=== PATIENT | female | born 1945 | race Caucasian/White ===

== ENCOUNTER → 2017-05-30 | Outpatient (CLI) | payer OTHER, SELFPAY ==
[~2017-05-30] MED LIST: AMOXICILLIN500 M1 PO; AMPICILLIN TRI250 MG PO; ATIVAN1 MG PO; AVAPRO300 MG PO; CALCIUM 600 +1 EAC1 PO; CALTRATE 600 +1 EAC1 PO; CEFUROXIME250 MG PO; CIPRO500 MG PO; CLONIDINE HCL0.3 M3 PO; COREG25 MG PO; COUMADIN 5 MG TA5 M1 PO; COUMADIN7.5 MG PO; DUONEB 2.5-0.5 M3 ML INH; ENOXAPARIN120 MG/0.1 SUBQ; FEMARA2.5 MG PO; FOLIC ACID 40400 MC1 PO; FOLIC ACID1 MG PO; HUMALOG100 UNIT/1 SUBQ; HYDRALAZINE 2525 MG PO; HYDROCODONE-AP1 EAC6 PO; IRON325 PO; KLOR-CON 1010 MEQ PO; LANTUS100 UNIT/M SUBQ; LASIX 20 MG TAB20 MG PO; LEVAQUIN 500 M500 M2 PO; LEVAQUIN 500 M500 MG PO; LEVAQUIN 7750 MG/152 IV; LEVSIN0.125 MG SUBLING; LIPITOR 20 MG T20 M1 PO; MINOCIN100 MG PO; MINOCYCLINE HC100 M2 PO; MIRALAX17 GM PO; NEBULIZER INH; NEBULIZER MISCELL; NORCO 5-325 TA1 EAC1 PO; NORVASC5 MG PO; OMEPRAZOLE20 M2 PO; PERCOCET PO; SENNA S TABLET1 EACH PO; SENOKOT-S1 TA1 PO; TRAMADOL 50 MG50 MG PO; VITAMIN B-12500 MCG PO; VITAMIN D1000 UNI1 PO; VITAMIN D50000 UNIT PO
== END ==
LOC: M.WC 00:07
DX: E11.622 Type 2 diabetes mellitus with other skin ulcer (principal); L97.221 Non-pressure chronic ulcer of left calf limited to breakdown of skin; L97.211 Non-pressure chronic ulcer of right calf limited to breakdown of skin; I87.2 Venous insufficiency (chronic) (peripheral); I89.0 Lymphedema, not elsewhere classified; I10 Essential (primary) hypertension; Z85.3 Personal history of malignant neoplasm of breast

== ENCOUNTER 2017-06-06 23:22 | Inpatient (IN) | payer OTHER, SELFPAY ==
[~2017-06-06] VITALS: Ht 152.4 cm; Wt 159.7 kg
[~2017-06-06 23:22] MED LIST changes: -FOLIC ACID1 MG PO; -MINOCIN100 MG PO; -MINOCYCLINE HC100 M2 PO; -NEBULIZER INH; -NORCO 5-325 TA1 EAC1 PO; -SENNA S TABLET1 EACH PO; -VITAMIN D1000 UNI1 PO
[2017-06-06 23:31] VITALS: BP 204/78
[2017-06-06 23:58] LABS: INFLUENZA A ANTIGEN None Detected (None Detect); INFLUENZA B ANTIGEN None Detected (None Detect)
[2017-06-07 00:35] LABS: ABSOLUTE BASOPHILS 0.1 thou/uL (0.0-0.2); ABSOLUTE EOSINOPHILS 0.1 thou/uL (0.0-0.7); ABSOLUTE LYMPHOCYTES 1.3 thou/uL (0.8-5.3); ABSOLUTE MONOCYTES 0.5 thou/uL (0.0-1.2); ABSOLUTE NEUTROPHILS 7.6 thou/uL (1.6-8.1); BASOPHILS 0.6 %; EOSINOPHILS 1.4 %; HEMATOCRIT 35.3 % (37.0-47.0); HEMOGLOBIN 11.7 gm/dL (12.0-15.0); LYMPHOCYTES 13.2 %; MCH 28.3 pg (26.0-34.0); MCHC 33.1 g/dL (28.0-37.0); MCV 85.5 fL (80.0-100.0); MONOCYTES 5.2 %; NUCLEATED RBCS 0 /100WBC; PLATELET COUNT* 128 thou/uL (150-400); POLYS 79.6 %; RBC 4.13 mil/uL (4.20-5.00); WBC 9.6 thou/uL (4.0-11.0)
[2017-06-07 00:40] LABS: URINE BILIRUBIN NEGATIVE (Negative); URINE BLOOD NEGATIVE (Negative); URINE CLARITY CLEAR; URINE COLOR YELLOW; URINE GLUCOSE-RANDOM NEGATIVE (Negative); URINE KETONES NEGATIVE (Negative); URINE LEUKOCYTES-REFLEX NEGATIVE (Negative); URINE NITRITE-REFLEX NEGATIVE (Negative); URINE PROTEIN NEGATIVE (Negative); URINE SPECIFIC GRAVITY 1.015 (1.005-1.030); URINE UROBILINOGEN 0.2 E.U./dl (0.2-1.0)
[2017-06-07 00:45] LABS: CREATININE 1.2 mg/dL (0.6-1.3); POTASSIUM 4.2 mmol/L (3.5-5.1)
[2017-06-07 00:50] LABS: APTT 39.7 Seconds (25.0-31.3); INR 2.6; PROTIME 24.8 Seconds (9.20-11.50)
[2017-06-07 00:52] LABS: ALBUMIN 2.8 g/dL (3.4-5.0); TOTAL BILIRUBIN 0.7 mg/dL (<0.1-1.0); TOTAL PROTEIN 6.7 g/dL (6.4-8.2)
--- NOTE | 2017-06-07 01:58 | NUR ---
PATIENT HAS BEEN UP TO BATHROOM MULTIPLE TIMES AND STATES SHE HAS BEEN VOIDING EACH TIME.
[2017-06-07 02:10] VITALS: BP 180/80
[2017-06-07 03:00] VITALS: BP 148/66
[2017-06-07] MEDS ORDERED: NEBULIZER INH (03:33)
[2017-06-07] MEDS ORDERED: NEBULIZER MISCELL (03:35)
--- NOTE | 2017-06-07 08:03 | NUR ---
PATIENT ARRIVED TO UNIT AT APPROXIMATELY 0225 AND WAS ACCOMPANIED BY HER SISTER, A FAMILY FRIEND, AND AN ED STAFF MEMBER. PATIENT WAS ACCLIMATED TO THE FLOOR, HER ROOM, AND THE CALL LIGHT SYSTEM. PATIENT A/O X 4 AND VSS. PATIENT IS ABLE TO WALK TO THE COMMODE WITH A MOSTLY STEADY GAIT. SHE NEEDS STANDBY ASSISTANCE FOR SAFETY. PATIENT LEFT ARM APPEARS APPROPRIATE FOR HER RACE AND IS WITHOUT REDNESS. PATIENT HAS BEEN UP TO THE RESTROOM MULTIPLE TIMES WITHOUT INCIDENT. URINE IS YELLOW, CLEAR AND WITHOUT ANY SEDIMENT. DURING REMOVAL OF A BANDAID, PATIENT WAS LEFT WITH A SKIN TEAR ON HER RIGHT FOREARM. WOUND NURSE CONSULTED AND PICTURES TAKEN OF WOUND AREA. D/T HX OF MRSA X 2 YEARS AGO, PATIENT IS IN CONTACT PRECAUTIONS AND A MRSA SWAB HAS BEEN SUBMITTED TO LAB FOR TESTING. PATIENT DENIED PAIN OVERNIGHT AND NO ORDERED PRN MEDICATIONS WERE ADMINISTERED. NURSING TO FOLLOW-UP NECESSARY. ALL FALL PRECAUTIONS IN PLACE, INCLUDING CALL LIGHT WITHIN REACH. WILL CONTINUE TO MONITOR CLOSELY.
[2017-06-07 09:30] VITALS: BP 152/67
[2017-06-07 16:26] VITALS: BP 145/79
--- NOTE | 2017-06-07 17:30 | NUR ---
PATIENT IS ALERT AND ORIENTED. ANGRY ABOUT BEING IN THE HOSPITAL AND FOR BEING ADMITTED, HAS THREATENED TO LEAVE AMA SEVERAL TIMES BUT HAS NO RIDE. IV WAS DISCONTINUED TODAY BY PATIENT. NO COMPLAINTS OF PAIN OR SHORTNESS OF AIR TODAY. VITAL SIGNS STABLE ON RROM AIR. CALL LIGHT IN REACH, WILL CONTINUE TO MONITOR.
[2017-06-07 20:00] VITALS: BP 158/74
[2017-06-08 03:39] VITALS: BP 133/53
[2017-06-08 03:41] LABS: ABSOLUTE EOSINOPHILS 0.2 thou/uL (0.0-0.7); ABSOLUTE LYMPHOCYTES 0.9 thou/uL (0.8-5.3); ABSOLUTE MONOCYTES 0.5 thou/uL (0.0-1.2); ABSOLUTE NEUTROPHILS 2.7 thou/uL (1.6-8.1); BASOPHILS 1.2 %; EOSINOPHILS 3.9 %; HEMATOCRIT 33.1 % (37.0-47.0); LYMPHOCYTES 21.1 %; MCH 28.5 pg (26.0-34.0); MCHC 33.3 g/dL (28.0-37.0); MCV 85.6 fL (80.0-100.0); MONOCYTES 11.8 %; MPV 9.8 fl. (7.2-11.1); NUCLEATED RBCS 0 /100WBC; PLATELET COUNT* 105 thou/uL (150-400); RBC 3.86 mil/uL (4.20-5.00); RDW-CV 16.1 % (10.5-14.5); WBC 4.3 thou/uL (4.0-11.0)
[2017-06-08 03:50] LABS: INR 1.5; PROTIME 14.2 Seconds (9.20-11.50)
[2017-06-08 03:52] LABS: CALCIUM 8.6 mg/dL (8.5-10.1); CREATININE 1.2 mg/dL (0.6-1.3); POTASSIUM 3.6 mmol/L (3.5-5.1)
--- NOTE | 2017-06-08 05:19 | NUR ---
ASSUMED CARE OF PATIENT AT APPROXIMATELY 1999. UPON FIRST ASSESSMENT, PATIENT WAS FRUSTRATED AND SLIGHTLY IRRITABLE D/T HER DESIRE WANT TO LEAVE. PATIENT A/O X 4 AND VSS. PATIENT REMOVED IV EARLIER YESTERDAY (06/07/17) AND NEW SITE IN LEFT HAND WAS APPARENTLY EXTREMELY PAINFUL FOR PATIENT DURING INSERTION. PATIENT HAS VERBALIZED THAT SHE WILL NOT BE "POKED" AGAIN AND WILL "JUST TAKE PILLS" IF SHE NEEDS ANOTHER IV, ETC. PATIENT HAS BEEN EXPRESSING HER DESIRE TO GO HOME SINCE ADMISSION. PATIENT HAD BM'S X 4 YESTERDAY (06/07/17). PATIENT'S UPPER EXTREMETIES (L ARM) CONTINUES TO DISPLAY CELLULITIS. PATIENT HAS REQUESTED NO PAIN MEDICATIONS PRN AND HAS DENIED PAIN OVERNIGHT. PATIENT EDUCATION HAS BEEN PERFORMED REGARDING LEAVING AMA AND THE BENEFIT OF IV MEDICATIONS. NURSING TO FOLLOW-UP NECESSARY. ALL FALL PRECAUTIONS IN PLACE, INCLUDING CALL LIGHT WITHIN REACH. WILL CONTINUE TO MONITOR CLOSELY.
[2017-06-08 07:45] VITALS: BP 140/52
--- NOTE | 2017-06-08 07:46 | CON ---
[address] [address] CONSULTATION Name: EUGENIOJOANIE DWAYNE Room: [address] IN M.R.#: [id number] Admission: 06/07/17 Attend Phys: Jas Acosta MD Discharge: Date of : 43 Report #: [id number] THIS REPORT FOR: //name// CC: Jas Bernal HISTORY OF PRESENT ILLNESS: Chart reviewed, patient examined. This 71-year-old with longstanding diabetes mellitus type 2, insulin requiring, previous history of left-sided lumpectomy this has been complicated by some lymphedema in the left upper extremity developed an inflammatory eruption in the left upper extremity. She has had a cough. She lives by herself and her sister decided that she was not doing well. She was transitioned to the Emergency Department and was found to have low-grade temperature elevations, felt to have upper extremity skin and soft tissue infection, dosed with vancomycin. She initially complains of left-sided mandibular pain. She had a fractured tooth. Denies any chills. She states her pulmonary status is stable. She denies any gastrointestinal related complaints. ALLERGIES: LISTED TO LATEX AND CODEINE. CURRENT MEDICATIONS: Include ____, losartan, vancomycin, warfarin, amlodipine, clonidine, carvedilol, atorvastatin, p.r.n. analgesics. PAST MEDICAL HISTORY: Diabetes mellitus, hypertension, history of DVTs, lower extremity venous stasis and lymphedema. SOCIAL HISTORY: Nonsmoker and no ethanol. FAMILY HISTORY: Noncontributory. REVIEW OF SYSTEMS: As above. PHYSICAL EXAMINATION: VITAL SIGNS: Temperature max 100.7 more recently 98.4, pulse 78, respirations 18 and blood pressure 150/67. SKIN: Warm, dry and no rashes. HEENT: Unremarkable. NECK: Supple. LUNGS: Diminished with clear breath sounds. HEART: Regular. ABDOMEN: Soft. EXTREMITIES: Left upper extremity has moderate inflammatory eruption. Minimizes degree of pain. There is no fluctuance, no bullous lesions or appreciate any subcutaneous inflammatory masses. GENITOURINARY: Deferred. RECTAL: [place] [address] CONSULTATION Name: EUGENIOJOANIE RAE Room: [address] IN [facility]#: [id number] Admission: 06/07/17 Attend Phys: Jas Acosta MD Discharge: Date of : 43 Report #: [id number] LABORATORY DATA: Influenza A and B antigen were not detected. CBC: White count of 9.6, H and H 11.7 and 35.3 and platelets of 128. Urinalysis is unremarkable. PT 24.8 and INR of 2.6. Electrolytes: Sodium 136, potassium 4.2, chloride 100, bicarbonate is 28, anion gap of 8, BUN and creatinine 27 and 1.2. LFTs are unremarkable. Albumin of 2.8, total protein 6.7. Estimated GFR 44. Lactic acid 1.3. NT-proBNP of 664. CT abdomen and pelvis, no acute process, fatty infiltration of the liver and bilateral bladder tumors. ASSESSMENT: Left upper extremity skin and soft tissue infection with cellulitis. Continue vancomycin for the moment. PLAN: We are going to get mandibular film of the left side to exclude possibility. We will transition to oral antibiotics for the next 1-2 days. Continue elevation. May try to add some compression as well. <ELECTRONICALLY SIGNED> By: Saleem Wyatt MD 06/08/17 0746 [id number] Wyatt MD /nt
--- NOTE | 2017-06-08 12:35 | NUR ---
WOUND CARE NOTE: CONSULT RECEIVED FOR WOUND ON R. FOREARM NOT PRESENT AT ADMIT. PATIENT SUSTAINED A SKIN TEAR AFTER A BANDAID WAS REMOVED, NURSES TO CARE FOR. PATIENT IS BEING SEEN IN THE WOUND CARE CENTER FOR VENOUS ULCERATIONS TO BILATERAL LEGS. LEGS ARE CURRENTLY WRAPPED WITH MULTI-LAYERED COMPRESSION. THESE WERE PLACED 06/06/17 AT THE WOUND CENTER. CURRENTLY THE WRAPS ARE INTACT AND PATIENT REFUSES TO LET THEM BE REMOVED. SHE STATES THEY ARE ONLY TO BE CHANGED WEEKLY. IF PATIENT HERE MONDAY, WILL ASSESS THEN. RECOMMEND FOLLOW UP IN WOUND CENTER UPON DISCHARGE. APPEARS TO HAVE AN APPOINTMENT 06/13/17
[2017-06-08 16:53] VITALS: BP 147/59
--- NOTE | 2017-06-08 17:09 | NUR ---
ALERT AND ORIENTED X4. UP AD ARDEN IN ROOM. IV IS PATENT AND INFUSING. DENIES PAIN AND NAUSEA. TOLERATING DIET. CONTACT PRECAUTIONS MAINTAINED. VSS ON ROOM AIR. HOURLY ROUNDS HAVE BEEN MAINTAINED THROUGHOUT SHIFT. CALL LIGHT IS WITHIN REACH. NURSING WILL CONTINUE TO MONITOR.
--- NOTE | 2017-06-08 17:10 | NUR ---
CM ASSESSMENT: Pt is A&O. Resides at [facility] alone. Supportive sister that assists with meals, Pt states that she is unable to stand long enough to cook. Pt has a cleaning lady that comes in every 2 weeks. Independent with other ADLs. Pt has a walker for mobility. Hx of HH with [facility] and [facility]. Hx of SNF at [facility]. Goal is to dc home tomorrow, open to HH if ordered. Following.
[2017-06-08 20:10] VITALS: BP 153/66
[2017-06-09 00:03] VITALS: BP 140/58
--- NOTE | 2017-06-09 04:28 | NUR ---
PATIENT HAS REMAINED ALERT AND ORIENTED X 4 THROUGHOUT THE SHIFT AND RESTING QUIETLY IN THE RECLINER AT BEDSIDE OVERNIGHT. IV RIGHT HAND INFILTRATED AT MIDNIGHT. PATIENT REFUSING TO HAVE A NEW IV STARTED. DR. DOUGLASS MADE AWARE OF THIS. NO NEW ORDERS AT THAT TIME. WRAPS REMAIN INTACT TO BLE. UP INDEPENDENT IN THE ROOM/BSC. VITAL SIGNS STABLE. CONTINUE TO MONITOR.
[2017-06-09 07:30] VITALS: BP 161/60
[2017-06-09 08:00] VITALS: BP 161/60
[2017-06-09] MEDS ORDERED: SENNA S TABLET1 EACH PO (09:48)
[2017-06-09 09:53] VITALS: BP 161/60
[2017-06-09] MEDS ORDERED: MINOCIN100 MG PO (10:19)
[2017-06-09 11:14] VITALS: BP 161/60
--- NOTE | 2017-06-09 12:09 | NUR ---
PATIENT LEFT UNIT AT 1208. ALERT AND ORIENTED X4. UP AD ARDEN IN ROOM. DENIES PAIN AND NAUSEA. NO IV TO DC. ALL PERSONAL ITEMS LEFT WITH PATIENT. DISCHARGE INSTRUCTIONS, PRESCRIPTIONS, AND NEW MEDICATION INFORMATION SENT WITH PATIENT. VSS ON ROOM AIR. HOURLY ROUNDS HAVE BEEN MAINTAINED THROUGHOUT SHIFT. LEFT WITH SISTER VIA CAR.
[2017-06-09 12:11] VITALS: BP 161/60
== END 2017-06-09 12:08 | disposition home or self-care (01) | DRG 602 ==
LOC: M.ERS 23:22 → M.TBA-ER 06-07 01:19 → M.ORTHSURG 06-07 01:19
PROVIDERS: Internal Medicine; Nurse Practitioner Family; ADMIT Internal Medicine
PROC: 2W1MX6Z Compression of Left Lower Extremity using Pressure Dressing (ICD-10-PCS; principal; 2017-06-06)
PROC: 2W1LX6Z Compression of Right Lower Extremity using Pressure Dressing (ICD-10-PCS; principal; 2017-06-06)
DX: L03.114 Cellulitis of left upper limb (principal); G93.40 Encephalopathy, unspecified; J98.11 Atelectasis; R65.10 Systemic inflammatory response syndrome (SIRS) of non-infectious origin without acute organ dysfunction; Z68.44 Body mass index [BMI] 60.0-69.9, adult; E66.01 Morbid (severe) obesity due to excess calories; D35.00 Benign neoplasm of unspecified adrenal gland; D69.6 Thrombocytopenia, unspecified; E86.0 Dehydration; Z85.3 Personal history of malignant neoplasm of breast; Z79.899 Other long term (current) drug therapy; Z88.5 Allergy status to narcotic agent; Z91.040 Latex allergy status

== ENCOUNTER → 2017-06-06 | Outpatient (CLI) | payer OTHER | LOC: M.WC 01:54 | DX: E11.622 Type 2 diabetes mellitus with other skin ulcer (principal); L97.211 Non-pressure chronic ulcer of right calf limited to breakdown of skin; L97.221 Non-pressure chronic ulcer of left calf limited to breakdown of skin; I89.0 Lymphedema, not elsewhere classified; I10 Essential (primary) hypertension; Z85.3 Personal history of malignant neoplasm of breast ==

== ENCOUNTER → 2017-06-13 | Outpatient (CLI) | payer OTHER ==
[~2017-06-13] MED LIST changes: +FOLIC ACID1 MG PO; +MINOCIN100 MG PO; +MINOCYCLINE HC100 M2 PO; +NEBULIZER INH; +NORCO 5-325 TA1 EAC1 PO; +SENNA S TABLET1 EACH PO; +VITAMIN D1000 UNI1 PO
== END ==
LOC: M.WC 01:34
DX: E11.622 Type 2 diabetes mellitus with other skin ulcer (principal); L97.211 Non-pressure chronic ulcer of right calf limited to breakdown of skin; L97.221 Non-pressure chronic ulcer of left calf limited to breakdown of skin; I10 Essential (primary) hypertension; I89.0 Lymphedema, not elsewhere classified; Z85.3 Personal history of malignant neoplasm of breast

== ENCOUNTER 2017-06-18 14:33 | Emergency (ER) | payer OTHER, SELFPAY ==
[~2017-06-18] VITALS: Ht 154.9 cm; Wt 122.5 kg
[~2017-06-18 14:33] MED LIST changes: -FOLIC ACID1 MG PO; -MINOCYCLINE HC100 M2 PO; -NORCO 5-325 TA1 EAC1 PO; -VITAMIN D1000 UNI1 PO
[2017-06-18] MEDS ORDERED: NORCO 5-325 TA1 EAC1 PO (15:53)
[2017-06-18 16:01] VITALS: BP 148/72
== END 2017-06-18 16:02 | disposition home or self-care (01) ==
LOC: M.ERS 14:33
DX: M17.11 Unilateral primary osteoarthritis, right knee (principal); I10 Essential (primary) hypertension; E11.9 Type 2 diabetes mellitus without complications; Z86.718 Personal history of other venous thrombosis and embolism; Z98.890 Other specified postprocedural states; Z88.5 Allergy status to narcotic agent; Z91.040 Latex allergy status

== ENCOUNTER → 2017-09-18 | Outpatient (CLI) | payer OTHER, SELFPAY ==
[~2017-09-18] MED LIST changes: +FOLIC ACID1 MG PO; +MINOCYCLINE HC100 M2 PO; +NORCO 5-325 TA1 EAC1 PO; +VITAMIN D1000 UNI1 PO
[2017-09-18 14:53] LABS: INR 1.4; PROTIME 13.4 Seconds (9.20-11.50)
== END ==
LOC: M.LAB 01:49
PROVIDERS: Student in an Organized Health Care Education/Training Program
DX: E11.9 Type 2 diabetes mellitus without complications (principal); R79.1 Abnormal coagulation profile

== ENCOUNTER 2017-10-08 14:54 | Inpatient (IN) | payer OTHER, SELFPAY ==
[~2017-10-08] VITALS: Ht 162.6 cm; Wt 122.5 kg
[~2017-10-08 14:54] MED LIST changes: -FOLIC ACID1 MG PO; -MINOCYCLINE HC100 M2 PO; -VITAMIN D1000 UNI1 PO
[2017-10-08 15:08] VITALS: BP 180/75
[2017-10-08 15:13] LABS: URINE BILIRUBIN NEGATIVE (Negative); URINE BLOOD NEGATIVE (Negative); URINE CLARITY CLEAR; URINE COLOR YELLOW; URINE GLUCOSE-RANDOM NEGATIVE (Negative); URINE KETONES NEGATIVE (Negative); URINE LEUKOCYTES-REFLEX NEGATIVE (Negative); URINE NITRITE-REFLEX NEGATIVE (Negative); URINE PROTEIN TRACE (Negative); URINE SPECIFIC GRAVITY >= 1.030 (1.005-1.030); URINE UROBILINOGEN 0.2 E.U./dl (0.2-1.0)
[2017-10-08] MEDS ORDERED: FOLIC ACID1 MG PO (15:20)
[2017-10-08] MEDS ORDERED: VITAMIN B-12500 MCG PO (15:21)
[2017-10-08] MEDS ORDERED: VITAMIN D1000 UNI1 PO (15:22)
[2017-10-08 15:32] LABS: HEMATOCRIT 33.6 % (37.0-47.0); HEMOGLOBIN 11.3 gm/dL (12.0-15.0); MCH 28.8 pg (26.0-34.0); MCHC 33.6 g/dL (28.0-37.0); MCV 85.7 fL (80.0-100.0); MPV 8.8 fl. (7.2-11.1); NUCLEATED RBCS 0 /100WBC; PLATELET COUNT* 143 thou/uL (150-400); RBC 3.92 mil/uL (4.20-5.00); RDW-CV 15.8 % (10.5-14.5); WBC 9.3 thou/uL (4.0-11.0)
[2017-10-08 15:42] LABS: APTT 57.4 Seconds (25.0-31.3); PROTIME 65.6 Seconds (9.20-11.50)
[2017-10-08 15:45] LABS: ANION GAP 6 mmol/L (7-16); BUN 22 mg/dL (7-18); CALCIUM 8.2 mg/dL (8.5-10.1); CHLORIDE 98 mmol/L (98-107); CO2 26 mmol/L (21-32); CREATININE 1.4 mg/dL (0.6-1.3); GLUCOSE 164 mg/dL (70-99); POTASSIUM 4.2 mmol/L (3.5-5.1); SODIUM 130 mmol/L (136-145)
[2017-10-08 15:50] LABS: ABSOLUTE EOSINOPHILS 0.4 thou/uL (0.0-0.7); ABSOLUTE LYMPHOCYTES 0.8 thou/uL (0.8-5.3); ABSOLUTE MONOCYTES 0.9 thou/uL (0.0-1.2); ABSOLUTE NEUTROPHILS 7.2 thou/uL (1.6-8.1); PLATELET ESTIMATE ADEQUATE
[2017-10-08 16:01] LABS: ALBUMIN 2.6 g/dL (3.4-5.0); ALKALINE PHOSPHATASE 92 U/L (46-116); CK-MB MASS 0.5 ng/mL (<0.5-3.6); NT-PRO BRAIN NAT PEPTIDE 425 pg/mL (<300); SGOT 20 U/L (15-37); SGPT 15 U/L (30-65); TOTAL BILIRUBIN 0.8 mg/dL (<0.1-1.0); TOTAL PROTEIN 6.8 g/dL (6.4-8.2); TROPONIN-I LEVEL <0.06 ng/mL (<0.06)
[2017-10-08 17:15] VITALS: BP 167/63
[2017-10-08 19:50] VITALS: BP 149/57
--- NOTE | 2017-10-08 20:08 | NUR ---
PT RECEIVED FROM ED AT 1820. PT AMBULATED TO BATHROOM WITH SBA. MONITOR APPLIED. PT AOX4, SISTER AT BEDSIDE.
[2017-10-08] MEDS ORDERED: COUMADIN7.5 MG PO (20:25)
[2017-10-09] VITALS: BP 143/50
--- NOTE | 2017-10-09 01:19 | NUR ---
PT ALERT ORIENTED. UP WITH WITH MAX ASSIST OF ONE TO BSC. TRAMADOL GIVEN FOR GENERALIZED PAIN. TELEMETRY SHOWS SR. LYMPHEDEMA WEEPING TO LOWER EXTREMETIES. WILL CONTINUE TO MONITOR.
[2017-10-09 04:30] VITALS: BP 128/54
[2017-10-09 08:00] VITALS: BP 129/54
--- NOTE | 2017-10-09 09:53 | NUR ---
ASSUMED PT CARE AT 0730, FULL ASSESMENT DONE CHARTED. PT A/O X4, IS ANXIOUS TO GO HOME TODAY. PTS VSS, SR/1ST AVB ON THE MONITOR. LE EDEMETOUS AND SOME DRAINAGE NOTED TO LE WOUNDS. PT STATES SHE IS SUPPOSED TO HAVE A APPT AT WOUND CLINIC TOMORROW. WOUND CARE CONSULT FOR TODAY. FALL PRECATUIONS IN PLACE, CALL LIGHT IN REACH. CALI CONTINUE WITH PLAN OF CARE.
--- NOTE | 2017-10-09 10:12 | EKG ---
[place] [address] ELECTROCARDIOGRAM REPORT Name: EUGENIOJOANIE RAE Room: [address] IN .R.#: [id number] Admission: 10/08/17 Attend Phys: Yudy Dawson Discharge: Date of : 43 Report #: [id number] THIS REPORT FOR: //name// [facility] ED Test Date: 2017-10-08 Test Time: 15:08:12 Pat Name: JOANIE BECKER Department: Room: Gender: F Revenue Research Analyst: : 1945 Requested By: Papi Rivera Order Number: [id number] MD: Inocente Thapa Measurements Intervals [employer] Rate: 77 P: 20 CT: 187 QRS: -2 QRSD: 85 T: 32 QT: 373 QTc: 423 Interpretive Statements Sinus rhythm Atrial premature complex Baseline wander in lead(s) V5 Compared to ECG 03/22/2017 23:56:07 Atrial premature complex(es) now present Electronically Signed On 10-09-2017 10:12:25 CDT by Inocente Thapa [email or web address] <ELECTRONICALLY SIGNED> By: Inocente Thapa MD, [facility] 10/09/17 1012 1508 1508 Inocente Thapa MD, [facility] /EPI
--- NOTE | 2017-10-09 11:00 | NUR ---
MET WITH PT TO DISCUSS HOME SITUATION/DC PLANNING. PT LIVES ALONE AT [facility] [address] HAS NO SERVICES THERE. PT'S SISTER IS SUPPORTIVE AND ASSISTS PT WITH MEALS AND TRANSPORATION. PT HAS ASSISTANT ATTORNEY GENERAL EVERY 2 WEEKS. PT USES WALKER, STATES SHE CAN DO HER OWN ADLS. HAS APPT WITH DR GREEN TOMORROW AT [facility] AND ON MON WITH HER ONCOLOGIST THAT SHE DOESN'T WANT TO MISS. PT USES WALKER AND SHOWER BENCH AND STATES CAN GET AROUND HER APT AND DO HER OWN ADLS, JUST CANNOT STAND LONG ENOUGH TO COOK. PT HAS HAD HH WITH [facility] AND [facility] IN THE PAST AND HAS BEEN TO [facility] BEFORE. STATES SHE WILL NEVER GO BACK TO [facility] HOWEVER, DID NOT HAVE A POSITIVE EXPERIENCE. PT HAS HER OWN PT/INR MACHINE AT HOME AND CHECKS IT DIRECTED. STATES HER PCP DR BARRY? MANAGES HER WARFARIN. PT ALSO STATED THAT SHE HAD A RECENT COLONOSCOPY AND HAD TO HOLD HER WARFARIN FOR 5 DAYS AND WONDERS IF HER INR WAS EFFECTED BY THAT. PT VERY ANXIOUS TO GO HOME. SHE IS AGREEABLE TO CONSIDER HH AND WANTS TO USE [facility]. CALLED AND [facility] WILL FOLLOW
[2017-10-09 12:01] LABS: INR 3.5; PROTIME 33.7 Seconds (9.20-11.50)
[2017-10-09 12:06] LABS: ABSOLUTE EOSINOPHILS 0.1 thou/uL (0.0-0.7); ABSOLUTE LYMPHOCYTES 1.3 thou/uL (0.8-5.3); ABSOLUTE MONOCYTES 0.7 thou/uL (0.0-1.2); ABSOLUTE NEUTROPHILS 3.5 thou/uL (1.6-8.1); BASOPHILS 0.2 %; EOSINOPHILS 2.2 %; HEMATOCRIT 30.8 % (37.0-47.0); HEMOGLOBIN 10.3 gm/dL (12.0-15.0); LYMPHOCYTES 22.3 %; MCHC 33.4 g/dL (28.0-37.0); MCV 86.7 fL (80.0-100.0); MONOCYTES 12.2 %; NUCLEATED RBCS 0 /100WBC; PLATELET COUNT* 122 thou/uL (150-400); POLYS 63.1 %; RBC 3.55 mil/uL (4.20-5.00); RDW-CV 15.9 % (10.5-14.5); WBC 5.6 thou/uL (4.0-11.0)
[2017-10-09 12:10] VITALS: BP 117/65
[2017-10-09 12:20] LABS: ALBUMIN 2.3 g/dL (3.4-5.0); CREATININE 1.2 mg/dL (0.6-1.3); POTASSIUM 3.7 mmol/L (3.5-5.1); TOTAL BILIRUBIN 0.6 mg/dL (<0.1-1.0); TOTAL PROTEIN 5.6 g/dL (6.4-8.2)
--- NOTE | 2017-10-09 14:06 | NUR ---
Nutrition: Consult received for "DM." Pt stated she has had DM for 17 yrs. She has no questions/concerns about it. She does not want any info on nutrition. BG running 78-129, alb 2.3, prealb 11.4. H/O DM, HTN. Wt: 260-270#. Regular diet. +BM. Low risk.
--- NOTE | 2017-10-09 16:45 | NUR ---
WOUND NURSE: PATIENT SEEN FOR WOUND ASSESSMENT OF DIABETIC ULCER PRESENT ON THE LEFT LATERAL LEG. THIS PRESENTS WITH PARTIAL THICKNESS TISSUE LOSS AT TIME OF THIS ASSESSMENT. THE WOUND WAS MEASURED A CLUSTER WITH SEVERAL SMALL OPENINGS NOTED. GREATER THAN 90% OF THE AREA IS COVERED IN THIN FRIABLE EPITHEAL TISSUE AND <10% CONTAINS BEEFY RED NONGRANULATING TISSUE. THERE IS A MODERATE AMOUNT OF SEROUSANGUINOUS DRAINAGE NOTED. THERE IS 3+ EDEMA IN THE LOWER LEG AND SOME REDNESS AND WARMTH PRESENT. CLEANSED WITH SOAP AND WATER, RINSED WITH WATER, THEN PATTED DRY. APPLIED LOTION TO INTACT SKIN TOES TO KNEE. APPLIED AQUACEL AG UNDER ABD TO THE WOUND, THEN WRAPPED WITH 4 LAYER COMPRESSION WRAP. APPLIED SINGLE LAYER SIZE F TUBIGRIP TO RLE. ABOVE CARE WAS TOLERATED WELL BY THE PATIENT. PATIENT WAS INSTRUCTED ON DISEASE PROCESS, POTENTIAL COMPLICATIONS, AND REPORTABLE SIGNS AND SYMPTOMS WITH GOOD UNDERSTANDING ACHIEVED.
[2017-10-09 23:36] VITALS: BP 134/45
[2017-10-10 04:41] LABS: ABSOLUTE EOSINOPHILS 0.2 thou/uL (0.0-0.7); ABSOLUTE LYMPHOCYTES 0.9 thou/uL (0.8-5.3); ABSOLUTE MONOCYTES 0.5 thou/uL (0.0-1.2); ABSOLUTE NEUTROPHILS 3.1 thou/uL (1.6-8.1); BASOPHILS 0.8 %; EOSINOPHILS 3.5 %; HEMATOCRIT 30.9 % (37.0-47.0); HEMOGLOBIN 10.4 gm/dL (12.0-15.0); LYMPHOCYTES 18.6 %; MCH 28.8 pg (26.0-34.0); MCHC 33.5 g/dL (28.0-37.0); MONOCYTES 10.9 %; MPV 9.6 fl. (7.2-11.1); NUCLEATED RBCS 0 /100WBC; PLATELET COUNT* 124 thou/uL (150-400); POLYS 66.2 %; RDW-CV 15.8 % (10.5-14.5); WBC 4.6 thou/uL (4.0-11.0)
[2017-10-10 04:47] LABS: INR 2.8; PROTIME 26.6 Seconds (9.20-11.50)
[2017-10-10 05:05] LABS: ALBUMIN 2.1 g/dL (3.4-5.0); CALCIUM 8.1 mg/dL (8.5-10.1); CREATININE 1.2 mg/dL (0.6-1.3); POTASSIUM 3.9 mmol/L (3.5-5.1); TOTAL BILIRUBIN 0.5 mg/dL (<0.1-1.0); TOTAL PROTEIN 6.1 g/dL (6.4-8.2)
[2017-10-10 05:19] LABS: PREALBUMIN 11.2 mg/dL (18.0-35.7)
[2017-10-10 07:40] VITALS: BP 171/71
--- NOTE | 2017-10-10 07:58 | NUR ---
PT SLEPT ON AND OFF THROUGH NIGHT. ASSESSMENT DOCUMENTED. MEDS GIVEN PER E-MAR. IV PATENT, FLUIDS INFUSING. NO REPORTS OF PAIN OR NAUSEA. WILL CONTINUE WITH PLAN OF CARE.
[2017-10-10] MEDS ORDERED: MINOCYCLINE HC100 M2 PO (13:36)
[2017-10-10 13:38] VITALS: BP 171/71
--- NOTE | 2017-10-10 14:18 | NUR ---
PATIENT A&OX4, ROOM AIR, IV RIGHT EXTERNAL JUGULAR, FLUIDS INFUSSING. UP WITH ASSISTX1 STAND BY. EDEMA BILATERAL LOWER EXTREMETY. PATIENT REFUSED TO HAVE DISCHARGE PHOTOS TAKEN OF LEFT LEG, ADAMENT ABOUT WOUND CLINIC CHANGING DRESSING ON MONDAY. WAS TOLD NOT TO CHANGE UNTIL THEN. NO OPEN AREAS ON RIGHT LEG, DISCOLORATION, TUBA GRIB IN PLACE. NO C/O PAIN/N/V. REVIEWED DISCHARGE PAPERWORK WITH PATIENT, VERBALIZES UNDERSTANDING. NO FURTHER QUESTIONS AT THIS TIME. ALL BELONGINGS TAKEN WITH PATIENT. APPROPRAITE AND COOPORATIVE WITH CARE.
== END 2017-10-10 14:05 | disposition home or self-care (01) | DRG 70 ==
LOC: M.ERS 14:54 → M.2W 16:19 → M.TBA-ER 16:19 → M.2W 17:29 → M.3W 10-09 17:22
PROVIDERS: Family Medicine; Internal Medicine; ADMIT Internal Medicine
DX: G93.40 Encephalopathy, unspecified (principal); J96.01 Acute respiratory failure with hypoxia; N17.0 Acute kidney failure with tubular necrosis; D68.59 Other primary thrombophilia; L03.116 Cellulitis of left lower limb; Z68.42 Body mass index [BMI] 45.0-49.9, adult; T45.515A Adverse effect of anticoagulants, initial encounter; I10 Essential (primary) hypertension; E11.9 Type 2 diabetes mellitus without complications; E66.9 Obesity, unspecified; E86.0 Dehydration; I87.2 Venous insufficiency (chronic) (peripheral); J20.9 Acute bronchitis, unspecified; M17.9 Osteoarthritis of knee, unspecified; Z87.442 Personal history of urinary calculi; Z88.8 Allergy status to other drugs, medicaments and biological substances; Z91.040 Latex allergy status; Z87.440 Personal history of urinary (tract) infections; Z79.4 Long term (current) use of insulin; Z79.899 Other long term (current) drug therapy; Z82.49 Family history of ischemic heart disease and other diseases of the circulatory system; Y92.89 Other specified places as the place of occurrence of the external cause

== ENCOUNTER → 2017-10-13 | Outpatient (CLI) | payer OTHER, SELFPAY ==
[~2017-10-13] MED LIST changes: +FOLIC ACID1 MG PO; +MINOCYCLINE HC100 M2 PO; +VITAMIN D1000 UNI1 PO
== END ==
LOC: M.WC 01:52
DX: E11.622 Type 2 diabetes mellitus with other skin ulcer (principal); L97.221 Non-pressure chronic ulcer of left calf limited to breakdown of skin; I10 Essential (primary) hypertension; I89.0 Lymphedema, not elsewhere classified; E66.01 Morbid (severe) obesity due to excess calories; Z68.43 Body mass index [BMI] 50.0-59.9, adult; Z85.3 Personal history of malignant neoplasm of breast

== ENCOUNTER → 2017-10-17 | Outpatient (CLI) | payer OTHER, SELFPAY | LOC: M.WC 02:14 | DX: E11.622 Type 2 diabetes mellitus with other skin ulcer (principal); L97.221 Non-pressure chronic ulcer of left calf limited to breakdown of skin; I87.2 Venous insufficiency (chronic) (peripheral); I10 Essential (primary) hypertension; I89.0 Lymphedema, not elsewhere classified; Z68.43 Body mass index [BMI] 50.0-59.9, adult; Z85.3 Personal history of malignant neoplasm of breast ==

== ENCOUNTER → 2017-10-19 | Outpatient (CLI) | payer OTHER, SELFPAY | LOC: M.WC 04:40 | DX: E11.622 Type 2 diabetes mellitus with other skin ulcer (principal); L97.221 Non-pressure chronic ulcer of left calf limited to breakdown of skin; I87.2 Venous insufficiency (chronic) (peripheral); I89.0 Lymphedema, not elsewhere classified; I10 Essential (primary) hypertension; Z85.3 Personal history of malignant neoplasm of breast ==

== ENCOUNTER → 2017-10-24 | Outpatient (CLI) | payer OTHER, SELFPAY | LOC: M.WC 00:51 | DX: E11.622 Type 2 diabetes mellitus with other skin ulcer (principal); L97.221 Non-pressure chronic ulcer of left calf limited to breakdown of skin; I87.2 Venous insufficiency (chronic) (peripheral); I89.0 Lymphedema, not elsewhere classified; I10 Essential (primary) hypertension; Z85.3 Personal history of malignant neoplasm of breast ==

== ENCOUNTER → 2017-10-31 | Outpatient (CLI) | payer OTHER | LOC: M.WC 01:49 | DX: E11.622 Type 2 diabetes mellitus with other skin ulcer (principal); L97.221 Non-pressure chronic ulcer of left calf limited to breakdown of skin; I89.0 Lymphedema, not elsewhere classified; I10 Essential (primary) hypertension; I87.2 Venous insufficiency (chronic) (peripheral); Z85.3 Personal history of malignant neoplasm of breast ==

== ENCOUNTER → 2017-11-07 | Outpatient (CLI) | payer OTHER | LOC: M.WC 00:42 | DX: E11.622 Type 2 diabetes mellitus with other skin ulcer (principal); L97.221 Non-pressure chronic ulcer of left calf limited to breakdown of skin; I87.2 Venous insufficiency (chronic) (peripheral); I10 Essential (primary) hypertension; I89.0 Lymphedema, not elsewhere classified; Z85.3 Personal history of malignant neoplasm of breast ==

== ENCOUNTER → 2017-11-14 | Outpatient (CLI) | payer OTHER | LOC: M.WC 02:57 | DX: E11.622 Type 2 diabetes mellitus with other skin ulcer (principal); L97.221 Non-pressure chronic ulcer of left calf limited to breakdown of skin; I89.0 Lymphedema, not elsewhere classified; I87.2 Venous insufficiency (chronic) (peripheral); I10 Essential (primary) hypertension; Z85.3 Personal history of malignant neoplasm of breast ==

== ENCOUNTER → 2017-11-21 | Outpatient (CLI) | payer OTHER | LOC: M.WC 04:54 | DX: E11.622 Type 2 diabetes mellitus with other skin ulcer (principal); L97.221 Non-pressure chronic ulcer of left calf limited to breakdown of skin; I87.2 Venous insufficiency (chronic) (peripheral); I10 Essential (primary) hypertension; I89.0 Lymphedema, not elsewhere classified; Z68.43 Body mass index [BMI] 50.0-59.9, adult; Z85.3 Personal history of malignant neoplasm of breast ==

== ENCOUNTER → 2018-04-24 | Outpatient (CLI) | payer OTHER | LOC: M.WC 13:00 | DX: E11.622 Type 2 diabetes mellitus with other skin ulcer (principal); L97.221 Non-pressure chronic ulcer of left calf limited to breakdown of skin; I89.0 Lymphedema, not elsewhere classified; I87.2 Venous insufficiency (chronic) (peripheral); I10 Essential (primary) hypertension; K21.9 Gastro-esophageal reflux disease without esophagitis; Z85.3 Personal history of malignant neoplasm of breast ==

== ENCOUNTER → 2018-04-27 | Outpatient (CLI) | payer OTHER | LOC: M.WC 04:36 | DX: E11.622 Type 2 diabetes mellitus with other skin ulcer (principal); L97.221 Non-pressure chronic ulcer of left calf limited to breakdown of skin; I89.0 Lymphedema, not elsewhere classified; I87.2 Venous insufficiency (chronic) (peripheral); I10 Essential (primary) hypertension; K21.9 Gastro-esophageal reflux disease without esophagitis; Z85.3 Personal history of malignant neoplasm of breast ==

== ENCOUNTER → 2018-05-01 | Outpatient (CLI) | payer OTHER | LOC: M.WC 05:18 | DX: E11.622 Type 2 diabetes mellitus with other skin ulcer (principal); L97.221 Non-pressure chronic ulcer of left calf limited to breakdown of skin; I89.0 Lymphedema, not elsewhere classified; I87.2 Venous insufficiency (chronic) (peripheral); I10 Essential (primary) hypertension; K21.9 Gastro-esophageal reflux disease without esophagitis; Z85.3 Personal history of malignant neoplasm of breast ==

== ENCOUNTER → 2018-05-08 | Outpatient (CLI) | payer OTHER | LOC: M.WC 04:45 | DX: E11.622 Type 2 diabetes mellitus with other skin ulcer (principal); L97.221 Non-pressure chronic ulcer of left calf limited to breakdown of skin; I89.0 Lymphedema, not elsewhere classified; I87.2 Venous insufficiency (chronic) (peripheral); I10 Essential (primary) hypertension; K21.9 Gastro-esophageal reflux disease without esophagitis; Z85.3 Personal history of malignant neoplasm of breast ==

== ENCOUNTER 2018-05-10 19:10 | Inpatient (IN) | payer OTHER ==
[~2018-05-10] VITALS: Ht 154.9 cm; Wt 123.8 kg
[~2018-05-10 19:10] MED LIST changes: +ERGOCALCIF50000 UNIT PO; -VITAMIN D1000 UNI1 PO
[2018-05-10 19:19] VITALS: BP 188/91
[2018-05-10 20:16] LABS: ABSOLUTE BASOPHILS 0.1 thou/uL (0.0-0.2); ABSOLUTE EOSINOPHILS 0.2 thou/uL (0.0-0.7); ABSOLUTE LYMPHOCYTES 1.3 thou/uL (0.8-5.3); ABSOLUTE MONOCYTES 0.4 thou/uL (0.0-1.2); ABSOLUTE NEUTROPHILS 2.6 thou/uL (1.6-8.1); BASOPHILS 1.3 %; EOSINOPHILS 5.2 %; HEMATOCRIT 35.9 % (37.0-47.0); LYMPHOCYTES 27.8 %; MCH 29.3 pg (26.0-34.0); MCHC 33.3 g/dL (28.0-37.0); MCV 87.9 fL (80.0-100.0); MONOCYTES 9.6 %; MPV 9.4 fl. (7.2-11.1); NUCLEATED RBCS 0 /100WBC; PLATELET COUNT* 115 thou/uL (150-400); POLYS 56.1 %; RBC 4.09 mil/uL (4.20-5.00); RDW-CV 15.6 % (10.5-14.5); WBC 4.6 thou/uL (4.0-11.0)
[2018-05-10 20:22] LABS: ANION GAP 6 mmol/L (7-16); BUN 21 mg/dL (7-18); CALCIUM 9.5 mg/dL (8.5-10.1); CHLORIDE 105 mmol/L (98-107); CO2 29 mmol/L (21-32); CREATININE 1.2 mg/dL (0.6-1.3); GLUCOSE 120 mg/dL (70-99); INR 1.8; POTASSIUM 4.1 mmol/L (3.5-5.1); PROTIME 18.7 Seconds (9.20-11.50); SODIUM 140 mmol/L (136-145)
[2018-05-10 20:28] LABS: BE 1.1 mmol/L (-2 to +3); HCO3 26.2 mmol/L (22.0-26.0); PCO2 43.1 mmHg (35.0-45.0); pH 7.401 (7.340-7.450)
[2018-05-10 20:28] LABS: INFLUENZA A ANTIGEN None Detected (None Detect); INFLUENZA B ANTIGEN None Detected (None Detect)
[2018-05-10 20:31] LABS: PO2 59.9 mmHg (75.0-100.0)
[2018-05-10 20:36] LABS: ALBUMIN 2.8 g/dL (3.4-5.0); ALKALINE PHOSPHATASE 86 U/L (46-116); NT-PRO BRAIN NAT PEPTIDE 663 pg/mL (<300); SGOT 24 U/L (15-37); SGPT 19 U/L (30-65); TOTAL BILIRUBIN 0.6 mg/dL (<0.1-1.0); TOTAL PROTEIN 6.9 g/dL (6.4-8.2); TROPONIN-I LEVEL <0.06 ng/mL (<0.06)
[2018-05-10 20:45] LABS: URINE BILIRUBIN NEGATIVE (Negative); URINE BLOOD NEGATIVE (Negative); URINE CLARITY CLEAR; URINE COLOR YELLOW; URINE GLUCOSE-RANDOM NEGATIVE (Negative); URINE KETONES NEGATIVE (Negative); URINE LEUKOCYTES-REFLEX NEGATIVE (Negative); URINE NITRITE-REFLEX NEGATIVE (Negative); URINE PROTEIN NEGATIVE (Negative); URINE SPECIFIC GRAVITY >= 1.030 (1.005-1.030); URINE UROBILINOGEN 0.2 E.U./dl (0.2-1.0)
[2018-05-10 23:45] VITALS: BP 202/87
[2018-05-11] VITALS (8 sets, daily range): BP systolic 93–202; BP diastolic 48–87
--- NOTE | 2018-05-11 01:45 | NUR ---
PT ADMIT TO ROOM 226 AT 2330. PT ALERT ORIENTED. SOB WITH ACTIVITY. TELEMETRY SHOWS SR. PT WITH LEG WRAP ON R LOWER LEG. PT STATES SHE HAS JUST FINISHED ANTIBIOTIC FOR MRSA IN LEG WOUNDS. PT STATES THERE ARE TWO WOUNDS. PT STATES WOUNDS WERE WRAPPED IN WOUND CLINIC AND REQUESTS THEY NOT BE UNWRAPPED UNTIL WOUND NURSE SEES HER. PICTURES NOT TAKEN BC OF THIS. WOUND NURSE CONSULTED. TELEMETRY SHOW SR. UP TO BR WITH ASSIST OF ONE. BP INITALLY 204/90. CLONIDINE GIVEN IN ED JUST PRIOR TO ARRIVAL. BP NOW 167/76. DR CARDENAS NOTIFIED OF BP AND MED REC COMPLETION. PT MADE NPO AT THIS TIME. WILL CONTINUE TO MONITOR.
--- NOTE | 2018-05-11 07:45 | NUR ---
ASSUMED CARE OF PT ASSESSED AND DOCUMENTED. PT IS ON CARDIAC MONITER TRACING SR HR 63. PT IS A&O WITH NO C/O PAIN. PT IS ON 3L OF 02. PT REMAINS ON ISO FOR MRSA IN HER WOUND. TOOK PICTURES OF WOUND AND PLACED IN CHART.PT HAS NOTED EDEMA IN BLLE'S. BED IS IN LOW POSITION CALL LIGHT IS IN REACH. WM.
--- NOTE | 2018-05-11 11:53 | NUR ---
PATIENT SEEN TO ADDRESS VENOUS LEG ULCER ON THE LLE. THIS PRESENTS A FULL THICKNESS SKIN LESION MEASURING 3.0 X 3.5 X 0.2 CM. THERE IS PINKISH RED GRANULATION TISSUE IN THE WOUND BED, THE PERIWOUND TISSUE APPEARS MACERATED. EDEMA IS CONTROLLED WITH COMPRESSION. CLEANSED WITH SOAP AND WATER, RINSED WITH WATER, THEN PATTED DRY. APPLIED LOTION TO INTACT SKIN TOES TO KNEE. APPLIED XEROFORM GAUZE UNDER ABD TO WOUND THEN WRAPPED WITH MEDILINE 4 LAYER COMPRESSION WRAP. ABOVE PEROCEDURE TOLERATED WELL. INSTRUCTED ON IMPORTANCE OF LEG ELEVATION ABOVE HEART FREQUENT POSSIBLE. PATIENT STATES SHE UNDERSTANDS.
--- NOTE | 2018-05-11 13:26 | NUR ---
Nutrition: Pt seen for obesity. Has LLE wounds. Admitted for SOA. H/o IDDM, CKD II, HLD, HTN, breast cancer. Will start chemo next week. Diet advanced to CHO controlled. Wt is stable, 273#. Hopeful for good po intake, will follow. Pt hopes for discharge by Monday. Albumin 2.8, prealb 19.5. Mild to low risk. GOALS: >75% of meals consumed, good HBV protein intake.
--- NOTE | 2018-05-11 14:45 | NUR ---
Pt is A&O. Pt resides at [facility]. Pt's sister lives 3 blocks away and assists as needed. Sister completes cooking and drives Pt to errands and appts, son assist with driving too. Pt has a house keeper that comes every 2 weeks. Pt is independent with IADLs. Pt has a walker that she can use for mobility. No home o2 at this time, but Pt has a hx home o2 from [facility] several years ago. Hx of , does not recall the agency. Hx of skilled at [facility]. Goal is home at [place], no needs anticipated.
--- NOTE | 2018-05-11 16:32 | EKG ---
[place] [address] ELECTROCARDIOGRAM REPORT Name: JOANIE BECKER Room: [address] ADM IN M.R.#: [id number] Admission: 05/10/18 Attend Phys: Marcela Chambers MD Discharge: Date of : 43 Report #: [id number] THIS REPORT FOR: //name// [facility] ED Test Date: 2018-05-10 Test Time: 20:09:02 Pat Name: JOANIE BECKER Department: Room: [facility] Gender: F Dress Cap Maker: : 1945 Requested By: Tereza Durham Order Number: [id number] MD: Fransisco Martínez Measurements Intervals [place] Rate: 76 P: 18 UT: 201 QRS: 6 QRSD: 89 T: 29 QT: 389 QTc: 438 Interpretive Statements Sinus rhythm Compared to ECG 10/08/2017 15:08:12 Atrial premature complex(es) no longer present Electronically Signed On 05-11-2018 16:32:29 [employer] by Fransisco Martínez [email or web address] <ELECTRONICALLY SIGNED> By: Fransisco Martínez MD, [facility] 05/11/18 1632 08 08 Fransisco Martínez MD, FAC /EPI
--- NOTE | 2018-05-11 17:11 | NUR ---
PT HAS RESTED IN HER BEDSIDE CHAIR AND WATCHED TV. PT HAS HAD NO S OR SX OF ADVERSE REACTION TO ABT. SHE HAS HAD NO C/O PAIN OR DISCOMFORT. WOUND PHOTOGRAPHED AND IN CHART. EDUCATION GIVEN ON DEMAND. HOURLY ROUNDING COMPLETE.
[2018-05-12 03:57] VITALS: BP 135/70
[2018-05-12 04:46] LABS: HEMATOCRIT 32.4 % (37.0-47.0); HEMOGLOBIN 10.7 gm/dL (12.0-15.0); MCH 29.2 pg (26.0-34.0); MCV 88.5 fL (80.0-100.0); MPV 9.8 fl. (7.2-11.1); RBC 3.66 mil/uL (4.20-5.00); RDW-CV 15.6 % (10.5-14.5)
[2018-05-12 05:00] LABS: PROTIME 20.9 Seconds (9.20-11.50)
[2018-05-12 05:12] LABS: ALBUMIN 2.5 g/dL (3.4-5.0); CREATININE 1.3 mg/dL (0.6-1.3); MAGNESIUM 1.6 mg/dL (1.8-2.4); POTASSIUM 4.3 mmol/L (3.5-5.1); TOTAL BILIRUBIN 0.6 mg/dL (<0.1-1.0); TOTAL PROTEIN 5.7 g/dL (6.4-8.2)
--- NOTE | 2018-05-12 07:46 | NUR ---
PT IS ABLE TO COMMUNICATE HER NEEDS TO STAFF EFFECTIVELY. SHE HAS DENIED THE NEED FOR PAIN MEDICATION UP TO THIS TIME. PT TO WEAR O2 WHEN BACK AND FORTH TO THE BATHROOM; NOT VERY COMPLIANT. CONTACT ISOLATION FOR MRSA IN HER LEG WOUND MAINTIANED. LEGS ELEVATED OVERNIGHT WHILE PT SLEPT IN CHAIR.
[2018-05-12 08:00] VITALS: BP 123/63
[2018-05-12 11:49] VITALS: BP 126/60
[2018-05-12 16:02] VITALS: BP 158/67
--- NOTE | 2018-05-12 16:16 | NUR ---
ASSUMED CARE OF PATIENT THIS AM AT 0730. PATIENT IS ALERT AND ORIENTED X 4 THROUGHOUT THE DAY. SHE DENIES PAIN. PATIENT C/O FREQUENT URINATION. IV ANTIBIOTICS CONTINUED TODAY. PATIENT REMAINS UP IN THE CHAIR PER HER REQUEST. TELE SHOWS NSR. SHE HAS BEEN ASSISTED UP TO THE BATHROOM THROUGHOUT THE DAY. WILL CONTINUE TO MONITOR AND PROMOTE SAFETY
[2018-05-12 20:08] VITALS: BP 183/73
[2018-05-13] VITALS: BP 154/62
[2018-05-13 04:00] VITALS: BP 167/75
[2018-05-13 05:00] LABS: HEMATOCRIT 34.9 % (37.0-47.0); HEMOGLOBIN 11.5 gm/dL (12.0-15.0); MCH 28.8 pg (26.0-34.0); MCV 87.2 fL (80.0-100.0); MPV 9.3 fl. (7.2-11.1); RBC 4.01 mil/uL (4.20-5.00); RDW-CV 15.4 % (10.5-14.5); WBC 3.3 thou/uL (4.0-11.0)
[2018-05-13 05:25] LABS: CALCIUM 9.5 mg/dL (8.5-10.1); CREATININE 1.1 mg/dL (0.6-1.3); MAGNESIUM 1.7 mg/dL (1.8-2.4); POTASSIUM 4.1 mmol/L (3.5-5.1)
--- NOTE | 2018-05-13 07:05 | NUR ---
PT IS ABLE TO COMMUNICATE HER NEEDS TO STAFF EFFECTIVELY. CURRENT PAIN MEDICATION REGIMEN HAS BEEN ADEQUATE FOR CONTROLLING HER PAIN UP TO THIS TIME. LIKELY DISCHARGE TODAY.
[2018-05-13 08:00] VITALS: BP 182/70
[2018-05-13 11:41] VITALS: BP 177/64
--- NOTE | 2018-05-13 13:53 | NUR ---
ASSUMED CARE OF PATIENT THIS AM AT 0730. PATIENT IS ALERT AND ORIENTED X 4. SHE C/O BACK PAIN THIS AM. PATIENT MEDICATED FOR PAIN X 1 WITH HER VERBALIZED RELIEF OF PAIN. TELE SHOWS SR TODAY. DR IN TO ROUND AND DISCHARGE ORDERS WER WRITTEN. PATIENT IS WAITING FOR DISCHARGE PAPERS.
[2018-05-13] MEDS ORDERED: AUGMENTIN 500-1 EACH PO (14:23)
[2018-05-13 14:41] VITALS: BP 177/64
[2018-05-13 14:48] VITALS: BP 177/64
--- NOTE | 2018-05-14 08:07 | CON ---
[address] [address] CONSULTATION Name: JOANIE BECKER Room: [address] M.R.#: [id number] Admission: 05/10/18 Attend Phys: Marcela Chambers MD Discharge: 05/13/18 Date of : 43 Report #: [id number] THIS REPORT FOR: //name// CC: Bobbi Chambers DATE OF SERVICE: 05/11/2018 LOCATION: She is located in room 226. ATTENDING PHYSICIAN: Dr. Gavin. INDICATION FOR CONSULTATION: Hypoxemia and bronchospasm. CLINICAL SUMMARY: The patient is a 72-year-old female, a lifelong nonsmoker, who has been short of breath for the last week or 2. She states that she was wheezing at night. She did not have any inhalers at home. She was more short of breath and came in to the Emergency Room yesterday afternoon. She was mildly hypoxic with room air saturations between 85% and 90% on 3 liters, her pO2 was 59 with relatively normal pCO2. She has a right breast cancer following treatment for previous left breast cancer. She has had several surgeries and she is supposed to have chemotherapy with Dr. Collado within the next week or 2. She is supposed to have a bone scan in a couple of days. She is a diabetic, but she is just diet controlled. She has morbid obesity and is not very active at home. Her sister is with her at the bedside and states that she does have some snoring and she takes naps occasionally during the afternoon, but there has been no workup for obstructive sleep apnea. I was asked to see her for hypoxemia and dyspnea. ALLERGIES: SHE HAS ALLERGIES OR INTOLERANCES TO CODEINE AND POSSIBLE LATEX. PAST MEDICAL HISTORY: Includes morbid obesity, breast cancer, local at this time, history of DVT in the past, on warfarin for that 3 years ago, also mild hypertension, on carvedilol and clonidine for that and some sliding scale insulin, also on hydralazine, insulin-dependent diabetes mellitus for the last 14 years, chronic dyspnea, left breast lumpectomy with lymph node removal on 01/05/2015, left breast abscess, status post lumpectomy with JANENE drain in December 2014, history of MRSA and bilateral lower extremities with lymphedema, radiation therapy in the left breast in May 2015, recurrent breast cancer in the right breast. She has had previous cholelithiasis and kidney stones. OUTPATIENT MEDICATIONS: Multiple and includes hydralazine 100 mg b.i.d. and then carvedilol 25 mg b.i.d., clonidine 0.3 mg b.i.d., Avapro 300 mg at bedtime, tramadol 50 mg every 6 hours p.r.n., omeprazole 20 mg at bedtime, [place] [address] CONSULTATION Name: JOANIE BECKER DWAYNE Room: [address] M.R.#: [id number] Admission: 05/10/18 Attend Phys: Marcela Chambers MD Discharge: 05/13/18 Date of : 43 Report #: [id number] 100 units, Humalog 100 units per mL, unknown dose with meals and bedtime and then atorvastatin 20 mg daily. She is on some DuoNeb treatments in the hospital 4 times a day. FAMILY HISTORY: Negative for premature cardiopulmonary disease. No history of breast cancer in the family. Other family history is positive for hypertension. SOCIAL HISTORY: She lives with her sister. Lifelong nonsmoker, nondrinker. It should be noted the patient had secondhand smoke. She worked in a bar as a bakery chef for 40 years, so she did have some secondhand smoke exposure there. REVIEW OF SYSTEMS: Otherwise was unremarkable except for pertinent positives noted in the HPI. PHYSICAL EXAMINATION: GENERAL: Pleasant, active 72-year-old female, in no acute distress. VITAL SIGNS: Blood pressure is 148/60, heart rate 60, respirations 16, temperature is 36.7 degrees. She is 5 feet 3 inches tall, weight is 124 kilograms or 275 pounds, BMI is 51, saturation on 3 liters is 95%. HEENT: Nares and pharynx are clear. Tongue is crowded. She has Mallampati score of 3-4. NECK: Thick, without masses or adenopathy. CHEST: Shows a few end expiratory wheezes posteriorly bilaterally, left greater than right. CARDIOVASCULAR: Regular rate and rhythm without murmur, gallop or rub. Heart rate 64. ABDOMEN: Obese without masses or megaly. EXTREMITIES: She has lymphedema. They are wrapped up and 1-2+ edema. No evidence of phlebitis. Negative Homans sign bilaterally and no tenderness currently. NEUROLOGIC: She moves all fours to exam. LABORATORY DATA: From late yesterday evening on 05/10/2018, hemoglobin is 12, white count is 4600, platelets 115,000. Sodium is 140, potassium is 4.1, carbon dioxide is 29, BUN is 21, creatinine is 1.2, glucose is 120. AST and ALT are within normal limits. Anti-proBNP is 663. Albumin is 2.8. ABGs on 3 liters yesterday evening showed a pO2 of 60, pH of 7.40, pCO2 is 43, bicarbonate is 26, O2 sat was only 87%. Carboxyhemoglobin was only 0.5, methemoglobin was only 0.3. Chest x-ray shows what may be some pulmonary artery hypertension or enlarged hilum. Heart size upper limits of normal. Possibly some mild fluid overload. Echocardiogram from 2017 shows an LVEF of 55%. Mild aortic sclerosis without significant stenosis. Mild left atrial enlargement, but no pulmonary artery hypertension. V/Q scan was low probability, prior DVTs were noted 3 years ago. IMPRESSION: [address] [address] CONSULTATION Name: EUGENIOJOANIE RAE Room: [address] .R.#: [id number] Admission: 05/10/18 Attend Phys: Marcela Chambers MD Discharge: 05/13/18 Date of : 43 Report #: [id number] 1. Hypoxemia and bronchospasm, probably from upper respiratory infection and possibly hiatal hernia with gastroesophageal reflux disease with bronchospasm, hypoxemia may be chronic. The patient is not all that active at home. 2. Right breast cancer following previous left breast cancer in need of chemotherapy soon. 3. Morbid obesity. 4. Evaluate for obesity hypoventilation, obstructive sleep apnea syndrome. PLAN: Add some bronchodilators to see if we can improve her oxygenation. May need a trial of Lasix and diuretic at some point in time. If she does not improve, follow up chest x-ray PA and lateral in a day or 2 would be helpful, may be a high resolution noncontrast CT of the chest, although I am not sure how well she can lie down flat at this time. We will try and resolve her hypoxemia and bronchospasm before she gets her chemotherapy with Dr. Collado to see if she is stable. I do not think she is actively infected at this time. I would treat for esophageal reflux. She may be having some reflux-induced bronchospasm. I discussed this with the patient's sister in detail, also mentioned that may be in a month or 2 after she stabilizes from chemotherapy, full PFTs and a full sleep study at [facility] may be indicated to rule out obstructive sleep apnea. Thanks again for allowing us to participate in this lady's care. <ELECTRONICALLY SIGNED> By: Markos Cottrell MD 05/14/18 [id number] Cottrell MD /nt
--- NOTE | 2018-05-15 21:41 | CON ---
[address] [address] CONSULTATION Name: JOANIE BECKER Room: [address] IN ..#: [id number] Admission: 05/10/18 Attend Phys: Marcela Chambers MD Discharge: 05/13/18 Date of : 43 Report #: [id number] THIS REPORT FOR: //name// CC: Sammy Chambers DATE OF SERVICE: 05/11/2018 PRIMARY ONCOLOGIST: Bobbi Collado MD. REASON FOR CONSULTATION: Breast cancer. SUBJECTIVE: A 72-year-old female who has been treated under the supervision of Dr. Collado at [facility] for metastatic breast cancer. She received Faslodex injections and she is in the process of starting oral Ibrance which is supposed to arrive today. The patient was admitted because of increasing shortness of breath for the last one week. The patient previously had a DVT and PE. Upon admission, her INR was subtherapeutic at 1.8. She received Lovenox and currently on warfarin with 10 mg p.o. daily. Workup including a V/Q scan showed low probability of PE. A chest x-ray did not show any acute cardiopulmonary process. The patient stated that she was feeling better after she received antibiotics during this hospital stay. REVIEW OF SYSTEMS: All systems reviewed. It was negative except the above. PAST MEDICAL HISTORY: Metastatic breast cancer, dyslipidemia, vitamin D deficiency, diabetes mellitus, previous history of VTE. MEDICATIONS: Per admission list. ALLERGIES: CODEINE, LATEX. SOCIAL HISTORY: No smoking, alcohol abuse, no drug abuse. FAMILY HISTORY: Noncontributory. PHYSICAL EXAMINATION: VITAL SIGNS: Temperature is 96.7, pulse is 59, respirations 18, blood pressure is 118/53, SpO2 is 92% on nasal cannula 3 liters. GENERAL: The patient was sitting in chair, was not in acute distress. LUNGS: Decreased breathing sounds, however, clear. No wheezing. No rales. HEART: Regular rate and rhythm. S1, S2 within normal limits. ABDOMEN: Soft, nontender, nondistended. EXTREMITIES: +2 edema bilaterally. LABORATORY DATA: Today, WBC 4.6, hemoglobin 12.0, platelets 115. PT 18.7, [place] [address] CONSULTATION Name: JOANIE BECKER Room: [address]#: [id number] Admission: 05/10/18 Attend Phys: Marcela Chambers MD Discharge: 05/13/18 Date of : 43 Report #: [id number] 1.8 and PTT is 41.0. Creatinine 1.2, bilirubin 0.6. IMAGING: As mentioned above. ASSESSMENT AND PLAN: A 72-year-old female who has been known to have a metastatic breast cancer, currently on systemic therapy with Faslodex and is supposed to receive Ibrance today through the mail to start that next Monday. The patient was admitted because of shortness of breath due to her high risk. I agree with increasing the dose of Coumadin to target between 2 and 3. The patient is already feeling significantly better and her breathing is better. At this point, I agree with the current supportive care with anticoagulation and antibiotics. Recommend follow up with Dr. Collado in the clinic once discharged to resume her systemic therapy. <ELECTRONICALLY SIGNED> By: Gayatri Jimenez MD 05/15/18 [id number] Jimenez MD /nt
== END 2018-05-13 16:00 | disposition home or self-care (01) | DRG 189 ==
LOC: M.ERS 19:10 → M.2W 21:21 → M.TBA-ER 21:21 → M.2W 23:35
PROVIDERS: Family Medicine; Personal Emergency Response Attendant; ADMIT Family Medicine
DX: J96.01 Acute respiratory failure with hypoxia (principal); R65.11 Systemic inflammatory response syndrome (SIRS) of non-infectious origin with acute organ dysfunction; I26.99 Other pulmonary embolism without acute cor pulmonale; J44.1 Chronic obstructive pulmonary disease with (acute) exacerbation; J44.0 Chronic obstructive pulmonary disease with (acute) lower respiratory infection; Z68.43 Body mass index [BMI] 50.0-59.9, adult; E78.5 Hyperlipidemia, unspecified; I12.9 Hypertensive chronic kidney disease with stage 1 through stage 4 chronic kidney disease, or unspecified chronic kidney disease; E66.01 Morbid (severe) obesity due to excess calories; Z77.22 Contact with and (suspected) exposure to environmental tobacco smoke (acute) (chronic); G47.33 Obstructive sleep apnea (adult) (pediatric); N18.2 Chronic kidney disease, stage 2 (mild); I87.2 Venous insufficiency (chronic) (peripheral); E11.22 Type 2 diabetes mellitus with diabetic chronic kidney disease; J20.9 Acute bronchitis, unspecified; Z79.4 Long term (current) use of insulin; Z86.718 Personal history of other venous thrombosis and embolism; Z88.6 Allergy status to analgesic agent; Z91.040 Latex allergy status; Z85.3 Personal history of malignant neoplasm of breast; Z87.442 Personal history of urinary calculi; Z82.49 Family history of ischemic heart disease and other diseases of the circulatory system

== ENCOUNTER → 2018-05-15 | Outpatient (CLI) | payer OTHER ==
[~2018-05-15] MED LIST changes: +AUGMENTIN 500-1 EACH PO
== END ==
LOC: M.WC 04:50
DX: E11.622 Type 2 diabetes mellitus with other skin ulcer (principal); L97.221 Non-pressure chronic ulcer of left calf limited to breakdown of skin; I89.0 Lymphedema, not elsewhere classified; I10 Essential (primary) hypertension; I87.2 Venous insufficiency (chronic) (peripheral); Z85.3 Personal history of malignant neoplasm of breast

== ENCOUNTER → 2018-05-23 | Outpatient (CLI) | payer OTHER | LOC: M.WC 01:52 | DX: E11.622 Type 2 diabetes mellitus with other skin ulcer (principal); L97.221 Non-pressure chronic ulcer of left calf limited to breakdown of skin; I89.0 Lymphedema, not elsewhere classified; I87.2 Venous insufficiency (chronic) (peripheral); I10 Essential (primary) hypertension; K21.9 Gastro-esophageal reflux disease without esophagitis; Z85.3 Personal history of malignant neoplasm of breast ==

== ENCOUNTER → 2018-05-24 | Outpatient (CLI) | payer OTHER | LOC: M.WC 10:52 | DX: E11.622 Type 2 diabetes mellitus with other skin ulcer (principal); L97.221 Non-pressure chronic ulcer of left calf limited to breakdown of skin; I89.0 Lymphedema, not elsewhere classified; I87.2 Venous insufficiency (chronic) (peripheral); I10 Essential (primary) hypertension; K21.9 Gastro-esophageal reflux disease without esophagitis; Z85.3 Personal history of malignant neoplasm of breast ==

== ENCOUNTER → 2018-06-05 | Outpatient (CLI) | payer OTHER | LOC: M.WC 10:54 | DX: E11.622 Type 2 diabetes mellitus with other skin ulcer (principal); L97.221 Non-pressure chronic ulcer of left calf limited to breakdown of skin; I89.0 Lymphedema, not elsewhere classified; I87.2 Venous insufficiency (chronic) (peripheral); I10 Essential (primary) hypertension; K21.9 Gastro-esophageal reflux disease without esophagitis; Z85.3 Personal history of malignant neoplasm of breast ==

== ENCOUNTER → 2018-06-12 | Outpatient (CLI) | payer OTHER | LOC: M.WC 05:09 | DX: E11.622 Type 2 diabetes mellitus with other skin ulcer (principal); L97.221 Non-pressure chronic ulcer of left calf limited to breakdown of skin; I87.2 Venous insufficiency (chronic) (peripheral); I89.0 Lymphedema, not elsewhere classified; I10 Essential (primary) hypertension; K21.9 Gastro-esophageal reflux disease without esophagitis; Z85.3 Personal history of malignant neoplasm of breast ==

== ENCOUNTER → 2018-06-19 | Outpatient (CLI) | payer OTHER | LOC: M.WC 04:26 | DX: E11.622 Type 2 diabetes mellitus with other skin ulcer (principal); L97.221 Non-pressure chronic ulcer of left calf limited to breakdown of skin; E66.9 Obesity, unspecified; I89.0 Lymphedema, not elsewhere classified; I87.2 Venous insufficiency (chronic) (peripheral); I10 Essential (primary) hypertension; K21.9 Gastro-esophageal reflux disease without esophagitis; Z85.3 Personal history of malignant neoplasm of breast; Z68.43 Body mass index [BMI] 50.0-59.9, adult ==

== ENCOUNTER → 2018-07-03 | Outpatient (CLI) | payer OTHER | LOC: M.WC 04:46 | DX: E11.622 Type 2 diabetes mellitus with other skin ulcer (principal); L97.221 Non-pressure chronic ulcer of left calf limited to breakdown of skin; L97.821 Non-pressure chronic ulcer of other part of left lower leg limited to breakdown of skin; I89.0 Lymphedema, not elsewhere classified; I87.2 Venous insufficiency (chronic) (peripheral); I10 Essential (primary) hypertension; K21.9 Gastro-esophageal reflux disease without esophagitis; Z85.3 Personal history of malignant neoplasm of breast ==

== ENCOUNTER → 2018-07-10 | Outpatient (CLI) | payer OTHER | LOC: M.WC 03:57 | DX: E11.622 Type 2 diabetes mellitus with other skin ulcer (principal); L97.221 Non-pressure chronic ulcer of left calf limited to breakdown of skin; I89.0 Lymphedema, not elsewhere classified; I87.2 Venous insufficiency (chronic) (peripheral); I10 Essential (primary) hypertension; K21.9 Gastro-esophageal reflux disease without esophagitis; Z85.3 Personal history of malignant neoplasm of breast ==

== ENCOUNTER → 2018-08-14 | Outpatient (CLI) | payer OTHER | LOC: M.WC 05:00 | DX: E11.622 Type 2 diabetes mellitus with other skin ulcer (principal); L97.221 Non-pressure chronic ulcer of left calf limited to breakdown of skin; I89.0 Lymphedema, not elsewhere classified; I87.2 Venous insufficiency (chronic) (peripheral); I10 Essential (primary) hypertension; K21.9 Gastro-esophageal reflux disease without esophagitis; Z85.3 Personal history of malignant neoplasm of breast ==

== ENCOUNTER → 2018-08-21 | Outpatient (CLI) | payer OTHER | LOC: M.WC 04:44 | DX: E11.622 Type 2 diabetes mellitus with other skin ulcer (principal); L97.221 Non-pressure chronic ulcer of left calf limited to breakdown of skin; I89.0 Lymphedema, not elsewhere classified; I87.2 Venous insufficiency (chronic) (peripheral); I10 Essential (primary) hypertension; K21.9 Gastro-esophageal reflux disease without esophagitis; Z85.3 Personal history of malignant neoplasm of breast ==